=== PATIENT | female | born 1960 | race Caucasian/White ===

== ENCOUNTER 2020-06-25 20:22 | Emergency (ER) | payer BC, OTHER ==
[~2020-06-25] VITALS: Ht 162.6 cm; Wt 102.0 kg
[2020-06-25] MEDS ORDERED: DIPH,PERTUSS(ACELL),TET VAC/PF 0.5 ML IM-VACC ONE (21:00)
[2020-06-25 21:56] LABS: BASOPHILS # (AUTO) 0.07 x10^3/uL (0-0.1); BASOPHILS % (AUTO) 1 % (0-1); EOSINOPHILS # (AUTO) 0.12 x10^3/uL (0-0.4); EOSINOPHILS % (AUTO) 1 % (1-7); LYMPHOCYTES # (AUTO) 2.62 x10^3/uL (1-3.4); LYMPHOCYTES % (AUTO) 22 % (22-44); MD NO; MEAN CORPUSCULAR HEMOGLOBIN 29.4 pg (27.0-34.8); MEAN CORPUSCULAR HGB CONC 32.9 g/dL (32.4-35.8); MEAN CORPUSCULAR VOLUME 89.5 fL (80-100); MEAN PLATELET VOLUME 7.9 fL (7.4-10.4); MONOCYTES # (AUTO) 0.86 x10^3/uL (0.2-0.8); MONOCYTES % (AUTO) 7 % (2-9); NEUTROPHILS # (AUTO) 8.47 x10^3/uL (1.8-6.8); NEUTROPHILS % (AUTO) 70 % (42-75); PLATELET COUNT 299 x10^3/uL (130-400); RED BLOOD COUNT 4.92 x10^6/uL (3.82-5.3); RED CELL DISTRIBUTION WIDTH 13.1 % (9.6-15.2)
[2020-06-25 22:04] LABS: ALBUMIN 3.3 g/dL (3.4-5.0); ANION GAP 3 mmol/L (5-15); CALCIUM 8.5 mg/dL (8.5-10.1); CHLORIDE 107 mmol/L (98-107)
[2020-06-25 22:06] LABS: CREATININE 0.81 mg/dL (0.55-1.02)
--- NOTE | 2020-06-25 22:27 | NUR ---
PT TO ROOM FROM LOBBY
--- NOTE | 2020-06-25 22:42 | NUR ---
US IN WITH PT AT THIS TIME
[2020-06-25 23:55] VITALS: BP 130/63
== END 2020-06-26 00:44 | disposition home or self-care (01) ==
LOC: ED 23:43
DX: L03.116 Cellulitis of left lower limb (principal); I89.0 Lymphedema, not elsewhere classified; R60.0 Localized edema; E11.9 Type 2 diabetes mellitus without complications; G89.29 Other chronic pain
CPT/HCPCS: 36415; 80048; 82040; 85025; 99284

== ENCOUNTER 2020-07-08 12:50 | Inpatient (IN) | payer OTHER ==
[~2020-07-08] VITALS: Ht 165.1 cm; Wt 121.6 kg
--- NOTE | 2020-07-08 13:30 | NUR ---
C/O DIABETIC WOUND ON LLE, ADVISED TO COME INTO ER BY PCP. PLACED ON VITALS MONITORS, FALL PRECAUTIONS IN PLACE. CALL LIGHT WITHIN REACH.
[2020-07-08 13:37] LABS: BASOPHILS # (AUTO) 0.05 x10^3/uL (0-0.1); BASOPHILS % (AUTO) 1 % (0-1); EOSINOPHILS # (AUTO) 0.09 x10^3/uL (0-0.4); EOSINOPHILS % (AUTO) 1 % (1-7); LYMPHOCYTES # (AUTO) 1.95 x10^3/uL (1-3.4); LYMPHOCYTES % (AUTO) 20 % (22-44); MD NO; MEAN CORPUSCULAR HEMOGLOBIN 29.4 pg (27.0-34.8); MEAN CORPUSCULAR VOLUME 89.1 fL (80-100); MEAN PLATELET VOLUME 8.1 fL (7.4-10.4); MONOCYTES # (AUTO) 0.74 x10^3/uL (0.2-0.8); MONOCYTES % (AUTO) 8 % (2-9); NEUTROPHILS # (AUTO) 7.13 x10^3/uL (1.8-6.8); NEUTROPHILS % (AUTO) 72 % (42-75); PLATELET COUNT 331 x10^3/uL (130-400); RED BLOOD COUNT 5.02 x10^6/uL (3.82-5.3); RED CELL DISTRIBUTION WIDTH 13.5 % (9.6-15.2)
[2020-07-08 13:46] LABS: ALBUMIN 3.8 g/dL (3.4-5.0); ANION GAP 6 mmol/L (5-15); CALCIUM 9.1 mg/dL (8.5-10.1); CHLORIDE 105 mmol/L (98-107)
[2020-07-08 13:52] LABS: ALANINE AMINOTRANSFERASE 35 U/L (12-78); ALKALINE PHOSPHATASE 112 U/L (45-117); BILIRUBIN,TOTAL 0.4 mg/dL (0.2-1.0); CREATININE 0.86 mg/dL (0.55-1.02); TOTAL PROTEIN 7.9 g/dL (6.4-8.2)
--- NOTE | 2020-07-08 15:05 | NUR ---
DR. WALTERS AT BEDSIDE.
--- NOTE | 2020-07-08 15:52 | NUR ---
Pt ambulated to restroom with cane and standby assist. Pt ambulating well.
--- NOTE | 2020-07-08 16:06 | NUR ---
Pt assisted into gown.
[2020-07-08] MEDS ORDERED: CLIN300C8 PO (16:40)
[2020-07-08] MEDS ORDERED: EMPA25TA PO (16:40)
[2020-07-08] MEDS ORDERED: DOXY100C15 PO (16:40)
[2020-07-08] MEDS ORDERED: INSU200I4 SQ-INSULIN (16:40)
[2020-07-08] MEDS ORDERED: FURO40TA6 PO (16:40)
[2020-07-08] MEDS ORDERED: METH10TA3 PO (16:40)
[2020-07-08] MEDS ORDERED: [UNRECOGNIZED DRUG - CODE] EACHEYE (16:40)
[2020-07-08] MEDS ORDERED: INDA2.5T PO (16:40)
[2020-07-08] MEDS ORDERED: CALC30CA PO (16:40)
[2020-07-08] MEDS ORDERED: BEMP180T PO (16:40)
[2020-07-08] MEDS ORDERED: DULO60CA56 PO (16:40)
[2020-07-08] MEDS ORDERED: POTA20TA89 PO (16:40)
[2020-07-08] MEDS ORDERED: LEVO150T PO (16:40)
[2020-07-08] MEDS ORDERED: TOPI200C6 PO (16:40)
[2020-07-08] MEDS ORDERED: OXYC-302 PO (17:52)
[2020-07-08 17:57] VITALS: BP 123/75
[2020-07-08] MEDS ORDERED: GLUCAGON 1 MG IM PRN (18:00)
[2020-07-08] MEDS ORDERED: HYDROcodone/APAP 5/325 TABLET PO PRN (18:00)
[2020-07-08] MEDS ORDERED: POTASSIUM CHLORIDE 20 MEQ TAB.ER.PRT PO ONE (18:00)
[2020-07-08] MEDS ORDERED: DEXTROSE 4 GM TAB.CHEW PO PRN (18:00)
[2020-07-08] MEDS ORDERED: ENOXAPARIN 40 MG/0.4 ML SQ SCH (18:00)
[2020-07-08] MEDS ORDERED: ONDANSETRON 2MG/ML, 2ML IVPush PRN (18:00)
[2020-07-08] MEDS ORDERED: VANCOMYCIN PER PHARMACY MC PRN (18:00)
[2020-07-08] MEDS ORDERED: VANCOMYCIN PMX 1GM/200ML 200 ML IV ONE (18:00)
[2020-07-08] MEDS ORDERED: DEXTROSE 50%, 50ML SYRINGE IVPush PRN (18:00)
[2020-07-08] MEDS: OXYcodone/APAP 5/325MG TABLET PO PRN (18:21)
[2020-07-08] MEDS ORDERED: PHARMACOKINETIC CONSULTATION MC ONE (18:30)
[2020-07-08] MEDS ORDERED: PHARMACOKINETIC MONITORING MC PRN (18:30)
[2020-07-08] MEDS: AMPICILLIN/SULBACTAM 3 GM in SODIUM CHLORIDE 0.9% 100 ML IV SCH (19:58)
[2020-07-08 21:12] VITALS: BP 130/91
[2020-07-08] MEDS: VANCOMYCIN 2,200 MG in SODIUM CHLORIDE 0.9% 500 ML IV SCH (21:31)
[2020-07-08] MEDS: METHADONE 10 MG TABLET PO SCH (21:31)
[2020-07-08] MEDS: FUROSEMIDE 20 MG/2 ML IV SCH (21:31)
[2020-07-08] MEDS: INSULIN LISPRO 100 UNITS/ML, PEN SQ-INSULIN SCH (21:33)
[2020-07-08] MEDS: INSULIN GLARGINE 100 UNITS/ML, PEN SQ-INSULIN SCH (21:33)
[2020-07-08] MEDS: (Empagliflozin (Jardiance) 1 TAB) PO SCH (21:33)
[2020-07-08] MEDS: SODIUM CHLORIDE FLUSH 10ML SYR IVF SCH (21:34)
[2020-07-09] VITALS: BP 112/70
[2020-07-09] MEDS: AMPICILLIN/SULBACTAM 3 GM in SODIUM CHLORIDE 0.9% 100 ML IV SCH ×4 (02:13→20:53)
[2020-07-09 05:07] LABS: BASOPHILS # (AUTO) 0.04 x10^3/uL (0-0.1); BASOPHILS % (AUTO) 0 % (0-1); EOSINOPHILS # (AUTO) 0.22 x10^3/uL (0-0.4); EOSINOPHILS % (AUTO) 2 % (1-7); LYMPHOCYTES # (AUTO) 4.72 x10^3/uL (1-3.4); LYMPHOCYTES % (AUTO) 36 % (22-44); MD NO; MEAN CORPUSCULAR HEMOGLOBIN 29.7 pg (27.0-34.8); MEAN CORPUSCULAR HGB CONC 33.1 g/dL (32.4-35.8); MEAN CORPUSCULAR VOLUME 89.5 fL (80-100); MEAN PLATELET VOLUME 8.3 fL (7.4-10.4); MONOCYTES # (AUTO) 1.31 x10^3/uL (0.2-0.8); MONOCYTES % (AUTO) 10 % (2-9); NEUTROPHILS % (AUTO) 52 % (42-75); PLATELET COUNT 337 x10^3/uL (130-400); RED CELL DISTRIBUTION WIDTH 13.6 % (9.6-15.2)
[2020-07-09 05:17] LABS: CALCIUM 9.3 mg/dL (8.5-10.1); CHLORIDE 109 mmol/L (98-107)
[2020-07-09 05:23] LABS: ALANINE AMINOTRANSFERASE 30 U/L (12-78); ALBUMIN 3.5 g/dL (3.4-5.0); ALKALINE PHOSPHATASE 91 U/L (45-117); ANION GAP 5 mmol/L (5-15); BILIRUBIN,TOTAL 0.6 mg/dL (0.2-1.0); CREATININE 0.78 mg/dL (0.55-1.02); TOTAL PROTEIN 7.3 g/dL (6.4-8.2)
[2020-07-09] MEDS: INSULIN LISPRO 100 UNITS/ML, PEN SQ-INSULIN SCH ×4 (07:00→20:53)
[2020-07-09 07:58] VITALS: BP 113/73
[2020-07-09] MEDS: SODIUM CHLORIDE FLUSH 10ML SYR IVF SCH ×2 (09:00→20:52)
[2020-07-09] MEDS: METHADONE 10 MG TABLET PO SCH ×3 (09:18→20:52)
[2020-07-09] MEDS: DULOXETINE 30 MG CAPSULE.DR PO SCH (09:18)
[2020-07-09] MEDS: POTASSIUM CHLORIDE 20 MEQ TAB.ER.PRT PO SCH (09:18)
[2020-07-09] MEDS: INSULIN GLARGINE 100 UNITS/ML, PEN SQ-INSULIN SCH ×2 (09:18→20:52)
[2020-07-09] MEDS: FUROSEMIDE 20 MG/2 ML IV SCH ×2 (09:19→17:00)
[2020-07-09] MEDS: LEVOTHYROXINE 150 MCG TABLET PO SCH (09:19)
[2020-07-09] MEDS: OXYcodone/APAP 5/325MG TABLET PO PRN (09:24)
[2020-07-09 13:58] VITALS: BP 122/74
[2020-07-09] MEDS: ACETAMINOPHEN 325 MG TABLET PO PRN (14:03)
[2020-07-09] MEDS: VANCOMYCIN 2,200 MG in SODIUM CHLORIDE 0.9% 500 ML IV SCH (16:06)
[2020-07-09 18:51] VITALS: BP 122/77
[2020-07-09] MEDS: ENOXAPARIN 30 MG/0.3 ML SQ SCH (20:52)
[2020-07-09] MEDS: (Empagliflozin (Jardiance) 1 TAB) PO SCH (20:53)
[2020-07-10 00:29] VITALS: BP 118/74
[2020-07-10] MEDS: ACETAMINOPHEN 325 MG TABLET PO PRN (02:03)
[2020-07-10] MEDS: AMPICILLIN/SULBACTAM 3 GM in SODIUM CHLORIDE 0.9% 100 ML IV SCH ×4 (02:04→21:00)
[2020-07-10] MEDS: INSULIN LISPRO 100 UNITS/ML, PEN SQ-INSULIN SCH ×4 (07:00→21:00)
[2020-07-10 07:02] VITALS: BP 109/72
[2020-07-10] MEDS: ENOXAPARIN 30 MG/0.3 ML SQ SCH ×2 (08:28→23:03)
[2020-07-10] MEDS: METHADONE 10 MG TABLET PO SCH ×3 (08:28→23:01)
[2020-07-10] MEDS: LEVOTHYROXINE 150 MCG TABLET PO SCH (08:28)
[2020-07-10] MEDS: DULOXETINE 30 MG CAPSULE.DR PO SCH (08:28)
[2020-07-10] MEDS: POTASSIUM CHLORIDE 20 MEQ TAB.ER.PRT PO SCH (08:28)
[2020-07-10] MEDS: SODIUM CHLORIDE FLUSH 10ML SYR IVF SCH ×2 (08:29→23:02)
[2020-07-10] MEDS: FUROSEMIDE 20 MG/2 ML IV SCH ×2 (08:29→17:37)
[2020-07-10] MEDS: VANCOMYCIN 2,200 MG in SODIUM CHLORIDE 0.9% 500 ML IV SCH (09:19)
[2020-07-10] MEDS: OXYcodone/APAP 5/325MG TABLET PO PRN (12:03)
[2020-07-10 13:15] VITALS: BP 126/76
[2020-07-10 20:31] VITALS: BP 104/67
[2020-07-10] MEDS: INSULIN GLARGINE 100 UNITS/ML, PEN SQ-INSULIN SCH (21:00)
[2020-07-10] MEDS: (Empagliflozin (Jardiance) 1 TAB) PO SCH (21:00)
[2020-07-11 00:05] VITALS: BP 125/80
[2020-07-11] MEDS: AMPICILLIN/SULBACTAM 3 GM in SODIUM CHLORIDE 0.9% 100 ML IV SCH ×4 (02:51→21:47)
[2020-07-11 03:13] LABS: BASOPHILS # (AUTO) 0.05 x10^3/uL (0-0.1); BASOPHILS % (AUTO) 1 % (0-1); EOSINOPHILS # (AUTO) 0.18 x10^3/uL (0-0.4); EOSINOPHILS % (AUTO) 2 % (1-7); LYMPHOCYTES % (AUTO) 27 % (22-44); MD NO; MEAN CORPUSCULAR HEMOGLOBIN 29.8 pg (27.0-34.8); MEAN CORPUSCULAR HGB CONC 33.4 g/dL (32.4-35.8); MEAN CORPUSCULAR VOLUME 89.3 fL (80-100); MEAN PLATELET VOLUME 7.9 fL (7.4-10.4); MONOCYTES # (AUTO) 0.71 x10^3/uL (0.2-0.8); MONOCYTES % (AUTO) 7 % (2-9); NEUTROPHILS # (AUTO) 6.93 x10^3/uL (1.8-6.8); NEUTROPHILS % (AUTO) 64 % (42-75); PLATELET COUNT 308 x10^3/uL (130-400); RED BLOOD COUNT 4.69 x10^6/uL (3.82-5.3); RED CELL DISTRIBUTION WIDTH 13.5 % (9.6-15.2)
[2020-07-11 03:23] LABS: ALANINE AMINOTRANSFERASE 40 U/L (12-78); ALBUMIN 3.4 g/dL (3.4-5.0); ANION GAP 5 mmol/L (5-15); CALCIUM 8.9 mg/dL (8.5-10.1); CHLORIDE 106 mmol/L (98-107); CREATININE 0.93 mg/dL (0.55-1.02)
[2020-07-11 03:25] LABS: ALKALINE PHOSPHATASE 96 U/L (45-117); BILIRUBIN,TOTAL 0.6 mg/dL (0.2-1.0); TOTAL PROTEIN 6.9 g/dL (6.4-8.2); VANCOMYCIN,TROUGH 22.3 mcg/mL (5.0-10.0)
[2020-07-11] MEDS: VANCOMYCIN 2,200 MG in SODIUM CHLORIDE 0.9% 500 ML IV SCH ×2 (03:29→22:44)
[2020-07-11 06:39] VITALS: BP 126/78
[2020-07-11] MEDS: INSULIN LISPRO 100 UNITS/ML, PEN SQ-INSULIN SCH ×4 (07:00→22:38)
[2020-07-11] MEDS: LEVOTHYROXINE 150 MCG TABLET PO SCH (08:27)
[2020-07-11] MEDS: DULOXETINE 30 MG CAPSULE.DR PO SCH (08:27)
[2020-07-11] MEDS: METHADONE 10 MG TABLET PO SCH ×3 (08:27→21:47)
[2020-07-11] MEDS: POTASSIUM CHLORIDE 20 MEQ TAB.ER.PRT PO SCH (08:27)
[2020-07-11] MEDS: FUROSEMIDE 20 MG/2 ML IV SCH ×2 (08:28→17:39)
[2020-07-11] MEDS: SODIUM CHLORIDE FLUSH 10ML SYR IVF SCH ×2 (08:28→21:00)
[2020-07-11] MEDS: ENOXAPARIN 30 MG/0.3 ML SQ SCH ×2 (08:28→21:47)
[2020-07-11] MEDS: INSULIN GLARGINE 100 UNITS/ML, PEN SQ-INSULIN SCH ×2 (09:07→22:44)
[2020-07-11] MEDS: OXYcodone/APAP 5/325MG TABLET PO PRN (12:59)
[2020-07-11] MEDS ORDERED: POLYETHYLENE GLYCOL 17 GM PACKET NG PRN (13:30)
[2020-07-11 13:59] VITALS: BP 139/84
[2020-07-11 18:56] VITALS: BP 124/76
[2020-07-11] MEDS: (Empagliflozin (Jardiance) 1 TAB) PO SCH (21:00)
[2020-07-12 00:54] VITALS: BP 119/77
[2020-07-12] MEDS: AMPICILLIN/SULBACTAM 3 GM in SODIUM CHLORIDE 0.9% 100 ML IV SCH ×4 (03:19→21:14)
[2020-07-12 06:32] LABS: BASOPHILS # (AUTO) 0.04 x10^3/uL (0-0.1); BASOPHILS % (AUTO) 0 % (0-1); EOSINOPHILS # (AUTO) 0.25 x10^3/uL (0-0.4); EOSINOPHILS % (AUTO) 2 % (1-7); LYMPHOCYTES # (AUTO) 3.64 x10^3/uL (1-3.4); LYMPHOCYTES % (AUTO) 32 % (22-44); MD NO; MEAN CORPUSCULAR HEMOGLOBIN 29.8 pg (27.0-34.8); MEAN CORPUSCULAR HGB CONC 33.3 g/dL (32.4-35.8); MEAN CORPUSCULAR VOLUME 89.6 fL (80-100); MEAN PLATELET VOLUME 8.3 fL (7.4-10.4); MONOCYTES # (AUTO) 0.96 x10^3/uL (0.2-0.8); MONOCYTES % (AUTO) 9 % (2-9); NEUTROPHILS # (AUTO) 6.35 x10^3/uL (1.8-6.8); NEUTROPHILS % (AUTO) 57 % (42-75); PLATELET COUNT 323 x10^3/uL (130-400); RED BLOOD COUNT 5.06 x10^6/uL (3.82-5.3); RED CELL DISTRIBUTION WIDTH 13.4 % (9.6-15.2)
[2020-07-12 06:37] VITALS: BP 114/71
[2020-07-12 06:37] LABS: ANION GAP 5 mmol/L (5-15); CALCIUM 9.4 mg/dL (8.5-10.1); CHLORIDE 108 mmol/L (98-107); CREATININE 0.71 mg/dL (0.55-1.02)
[2020-07-12] MEDS: INSULIN LISPRO 100 UNITS/ML, PEN SQ-INSULIN SCH ×4 (07:00→21:15)
[2020-07-12] MEDS: INSULIN GLARGINE 100 UNITS/ML, PEN SQ-INSULIN SCH ×2 (08:56→21:15)
[2020-07-12] MEDS: DULOXETINE 30 MG CAPSULE.DR PO SCH (09:02)
[2020-07-12] MEDS: LEVOTHYROXINE 150 MCG TABLET PO SCH (09:03)
[2020-07-12] MEDS: ENOXAPARIN 30 MG/0.3 ML SQ SCH ×2 (09:03→21:14)
[2020-07-12] MEDS: FUROSEMIDE 20 MG/2 ML IV SCH ×2 (09:03→17:24)
[2020-07-12] MEDS: METHADONE 10 MG TABLET PO SCH ×3 (09:03→21:14)
[2020-07-12] MEDS: POTASSIUM CHLORIDE 20 MEQ TAB.ER.PRT PO SCH (09:03)
[2020-07-12] MEDS: SODIUM CHLORIDE FLUSH 10ML SYR IVF SCH ×2 (09:05→21:00)
[2020-07-12 13:49] VITALS: BP 117/73
[2020-07-12] MEDS: VANCOMYCIN 2,200 MG in SODIUM CHLORIDE 0.9% 500 ML IV SCH (15:55)
[2020-07-12 18:38] VITALS: BP 124/78
[2020-07-12] MEDS: (Empagliflozin (Jardiance) 1 TAB) PO SCH (21:00)
[2020-07-13] MEDS: OXYcodone/APAP 5/325MG TABLET PO PRN (00:21)
[2020-07-13 00:30] VITALS: BP 123/75
[2020-07-13] MEDS: AMPICILLIN/SULBACTAM 3 GM in SODIUM CHLORIDE 0.9% 100 ML IV SCH ×3 (02:41→15:00)
[2020-07-13] MEDS: INSULIN LISPRO 100 UNITS/ML, PEN SQ-INSULIN SCH ×2 (07:00→11:23)
[2020-07-13 07:16] VITALS: BP 112/77
[2020-07-13] MEDS: POTASSIUM CHLORIDE 20 MEQ TAB.ER.PRT PO SCH (09:16)
[2020-07-13] MEDS: DULOXETINE 30 MG CAPSULE.DR PO SCH (09:16)
[2020-07-13] MEDS: METHADONE 10 MG TABLET PO SCH (09:16)
[2020-07-13] MEDS: LEVOTHYROXINE 150 MCG TABLET PO SCH (09:16)
[2020-07-13] MEDS: FUROSEMIDE 20 MG/2 ML IV SCH (09:17)
[2020-07-13] MEDS: SODIUM CHLORIDE FLUSH 10ML SYR IVF SCH (09:17)
[2020-07-13] MEDS: ENOXAPARIN 30 MG/0.3 ML SQ SCH (09:18)
[2020-07-13] MEDS: INSULIN GLARGINE 100 UNITS/ML, PEN SQ-INSULIN SCH (09:18)
[2020-07-13] MEDS: VANCOMYCIN 2,200 MG in SODIUM CHLORIDE 0.9% 500 ML IV SCH (09:50)
[2020-07-13] MEDS ORDERED: DOXY100C15 PO (10:12)
[2020-07-13] MEDS ORDERED: FURO40TA6 PO (10:12)
[2020-07-13] MEDS ORDERED: AMOX1TAB64 PO (10:12)
[2020-07-13 13:36] VITALS: BP 124/74
== END 2020-07-13 15:06 | disposition home or self-care (01) | DRG 603 ==
LOC: ED 14:23 → SUATTDRO 14:37 → EDIP 17:05 → OBSVTOIN 17:05 → INTOOBSV 17:05 → 3N 17:10 → DCLOUNGE 07-13 14:55
PROVIDERS: ADMIT Internal Medicine Infectious Disease; ATTEND Hospitalist
DX: L03.116 Cellulitis of left lower limb (principal); F11.20 Opioid dependence, uncomplicated; L97.219 Non-pressure chronic ulcer of right calf with unspecified severity; L97.229 Non-pressure chronic ulcer of left calf with unspecified severity; E78.5 Hyperlipidemia, unspecified; L03.115 Cellulitis of right lower limb; E11.9 Type 2 diabetes mellitus without complications; E87.6 Hypokalemia; G89.29 Other chronic pain; I89.0 Lymphedema, not elsewhere classified; I83.012 Varicose veins of right lower extremity with ulcer of calf; I83.022 Varicose veins of left lower extremity with ulcer of calf; Z79.4 Long term (current) use of insulin; I87.8 Other specified disorders of veins; Z88.2 Allergy status to sulfonamides; Z91.013 Allergy to seafood; E03.9 Hypothyroidism, unspecified
CPT/HCPCS: 36415; 80048; 80053; 80202; 82947; 82962; 83036; 83880; 85025; 87040; 87070; 87205; G0378; J0295; J1650; J3370; J1815; J1940; J7040